=== PATIENT | female | born 1980 | race Caucasian/White ===

== ENCOUNTER 2018-10-31 13:53 | Emergency (ER) | payer MEDICAID, OTHER ==
[~2018-10-31] VITALS: Ht 165.1 cm; Wt 70.3 kg
[~2018-10-31 13:53] MED LIST: CLON0.12 PO; CLON1TAB2 PO; OXYC-12 PO; PRD20T PO; PRM25T PO; [UNRECOGNIZED DRUG - OTHER]
[2018-10-31 14:52] LABS: BASOPHILS % (AUTO) 0 % (0-10); EOSINOPHILS # (AUTO) 0.2 10^3/uL (0.0-0.3); EOSINOPHILS % (AUTO) 2 % (0-10); HEMATOCRIT 40 % (35-52); HEMOGLOBIN 13.5 G/DL (11.5-16.0); LYMPHOCYTES # (AUTO) 3.2 X 10^3 (1.0-4.0); LYMPHOCYTES % (AUTO) 28 % (12-44); MEAN CORPUSCULAR HEMOGLOBIN 32 PG (25-34); MEAN CORPUSCULAR HGB CONC 33 G/DL (32-36); MEAN CORPUSCULAR VOLUME 95 FL (80-99); MONOCYTES # (AUTO) 0.7 X 10^3 (0.0-1.0); MONOCYTES % (AUTO) 6 % (0-12); NEUTROPHILS # (AUTO) 7.5 X 10^3 (1.8-7.8); NEUTROPHILS % (AUTO) 64 % (42-75); PLATELET COUNT 437 10^3/uL (130-400); RED BLOOD COUNT 4.26 10^6/uL (4.35-5.85); RED CELL DISTRIBUTION WIDTH 12.6 % (10.0-14.5); WHITE BLOOD COUNT 11.7 10^3/uL (4.3-11.0)
--- NOTE | 2018-10-31 14:55 | ED Abdominal Pain ---
General Chief Complaint: Abdominal/GI Problems Stated Complaint: UPPER ABD PAIN Nursing Triage Note: FOR LAST WEEK, PATIENT HAS BEEN HAVING UPPER ABD PAIN BILATERALLY. SHE HAS ALSO BEEN HAVING DIARRHEA NAD NAUSEA AND HAS HAD GREEN COLORED VOMITUS. HAS HAD CHILLS. Sepsis Screen: No Definite Risk Source of Information: Patient Exam Limitations: No Limitations History of Present Illness Date Seen by Provider: Oct 31, 2018 Time Seen by Provider: 14:49 Initial Comments Patient is a 37-year-old female who presents with complaints of epigastric abdominal pain, nausea, vomiting, diarrhea for the past week. She didn't denies fevers but has had periods of feeling clammy and chills often. Denies any urinary tract symptoms. Timing/Duration: 1 Week Severity/Quality: Cramping Location: Epigastric Radiation: No Radiation Associated Symptoms: Fever/Chills, Nausea/Vomiting Allergies and Home Medications Allergies Coded Allergies: No Known Drug Allergies (Unverified , 05/05/12) Home Medications Nitrofurantoin Monohyd/M-Cryst 100 Mg Capsule, 1 TAB PO BID Prescribed by: LES TAYLOR on 10/31/18 1640 Ondansetron HCl 4 Mg Tab, 4 MG PO Q4H PRN for NAUSEA/VOMITING-1ST LINE Prescribed by: LES TAYLOR on 10/31/18 1640 Patient Home Medication List Home Medication List Reviewed: Yes Review of Systems Review of Systems Constitutional: see HPI, chills, fever Gastrointestinal: See HPI, Abdominal Pain, Diarrhea, Nausea, Vomiting All Other Systems Reviewed Negative Unless Noted: Yes Past Rbutkfs-Kofxdp-Mmzzng Hx Past Med/Social Hx: Reviewed Nursing Past Med/Soc Hx Patient Social History Alcohol Use: Denies Use Recreational Drug Use: No Smoking Status: Current Someday Smoker Type Used: Cigarettes 2nd Hand Smoke Exposure: Yes Recent Foreign Travel: No Contact w/Someone Who Travel: No Recent Infectious Disease Expo: No Recent Hopitalizations: No Seasonal Allergies Seasonal Allergies: No Past Medical History Surgeries: Yes Appendectomy, Section, Tonsillectomy, Tubal Ligation Respiratory: No Cardiac: No Neurological: No Genitourinary: No Gastrointestinal: No Musculoskeletal: No Endocrine: No HEENT: No Cancer: No Psychosocial: No Integumentary: No Blood Disorders: No Family Medical History Reviewed Nursing Family Hx Physical Exam Vital Signs Vital Signs - First Documented 10/31/18 14:06 Temp 97.9 Pulse 78 Resp 18 B/P (MAP) 143/82 (102) Pulse Ox 100 Capillary Refill : Less Than 3 Seconds Height/Weight/BMI Height: 5'5.00" Weight: 155lbs. 0oz. 70.990337eu; BMI Method:Stated General Appearance: WD/WN, no apparent distress Respiratory: chest non-tender, lungs clear, normal breath sounds, no respiratory distress, no accessory muscle use Cardiovascular: normal peripheral pulses, regular rate, rhythm, no edema, no gallop, no JVD, no murmur Gastrointestinal: normal bowel sounds, soft, no organomegaly, no pulsatile mass , tenderness (left lower quadrant tenderness.) Neurologic/Psychiatric: alert, normal mood/affect, oriented x 3 Skin: normal color, warm/dry Progress/Results/Core Measures Results/Orders Lab Results Laboratory Tests Test 10/31/18 14:46 10/31/18 14:53 Range/Units White Blood Count 11.7 H 4.3-11.0 10^3/uL Red Blood Count 4.26 L 4.35-5.85 10^6/uL Hemoglobin 13.5 11.5-16.0 G/DL Hematocrit 40 35-52 % Mean Corpuscular Volume 95 80-99 FL Mean Corpuscular Hemoglobin 32 25-34 PG Mean Corpuscular Hemoglobin Concent 33 32-36 G/DL Red Cell Distribution Width 12.6 10.0-14.5 % Platelet Count 437 H 130-400 10^3/uL Mean Platelet Volume 10.0 7.4-10.4 FL Neutrophils (%) (Auto) 64 42-75 % Lymphocytes (%) (Auto) 28 12-44 % Monocytes (%) (Auto) 6 0-12 % Eosinophils (%) (Auto) 2 0-10 % Basophils (%) (Auto) 0 0-10 % Neutrophils # (Auto) 7.5 1.8-7.8 X 10^3 Lymphocytes # (Auto) 3.2 1.0-4.0 X 10^3 Monocytes # (Auto) 0.7 0.0-1.0 X 10^3 Eosinophils # (Auto) 0.2 0.0-0.3 10^3/uL Basophils # (Auto) 0.0 0.0-0.1 10^3/uL Sodium Level 138 135-145 MMOL/L Potassium Level 4.0 3.6-5.0 MMOL/L Chloride Level 101 98-107 MMOL/L Carbon Dioxide Level 28 21-32 MMOL/L Anion Gap 9 5-14 MMOL/L Blood Urea Nitrogen 12 7-18 MG/DL Creatinine 0.90 0.60-1.30 MG/DL Estimat Glomerular Filtration Rate > 60 BUN/Creatinine Ratio 13 Glucose Level 109 H 70-105 MG/DL Calcium Level 9.5 8.5-10.1 MG/DL Corrected Calcium 9.2 8.5-10.1 MG/DL Total Bilirubin 0.4 0.1-1.0 MG/DL Aspartate Amino Transf (AST/SGOT) 15 5-34 U/L Alanine Aminotransferase (ALT/SGPT) 15 0-55 U/L Alkaline Phosphatase 72 40-136 U/L Total Protein 7.6 6.4-8.2 GM/DL Albumin 4.4 3.2-4.5 GM/DL Amylase Level 23 L 25-125 U/L Lipase 16 8-78 U/L Serum Test, Qualitative NEGATIVE NEGATIVE Urine Color YELLOW Urine Clarity SLIGHTLY CLOUDY Urine pH 5 5-9 Urine Specific [place] 1.025 H 1.016-1.022 Urine Protein 2+ H NEGATIVE Urine Glucose (UA) NEGATIVE NEGATIVE Urine Ketones 1+ H NEGATIVE Urine Nitrite POSITIVE H NEGATIVE Urine Bilirubin 1+ H NEGATIVE Urine Urobilinogen 1 NORMAL MG/DL Urine Leukocyte Esterase 2+ H NEGATIVE Urine RBC (Auto) 4+ H NEGATIVE Urine RBC 0-2 /HPF Urine WBC 5-10 H /HPF Urine Squamous Epithelial Cells 5-10 /HPF Urine Renal Epithelial Cells NONE /HPF Urine Crystals PRESENT H /LPF Urine Calcium Oxalate Crystals MODERATE H /LPF Urine Bacteria LARGE H /HPF Urine Casts NONE /LPF Urine Mucus MODERATE H /LPF Urine Culture Indicated YES My Orders Orders - LES TAYLOR Comprehensive Metabolic Panel (10/31/18 14:13) Lipase (10/31/18 14:13) Amylase (10/31/18 14:13) Ua Culture If Indicated (10/31/18 14:13) Hcg,Qualitative Serum (10/31/18 14:13) Saline Lock/Iv-Start (10/31/18 14:13) Cbc With Automated Diff (10/31/18 14:13) Ct Abdomen/Pelvis W (10/31/18 15:06) Urine Culture (10/31/18 14:53) Iohexol Injection (Omnipaque 350 Mg/Ml 1 (10/31/18 15:30) Contrast Received (Contrast Received) (10/31/18 15:30) Ns (Ivpb) (Sodium Chloride 0.9% Ivpb Bag (10/31/18 15:30) Medications Given in ED Current Medications Medications Dose Ordered Sig/Yolanda Route Start Time Stop Time Status Last Admin Dose Admin Iohexol 100 ml ONCE ONCE IV 10/31/18 15:30 10/31/18 15:33 DC 10/31/18 15:58 100 ML Sodium Chloride 100 ml ONCE ONCE IV 10/31/18 15:30 10/31/18 15:33 DC 10/31/18 15:58 80 ML Vital Signs/I&O 10/31/18 14:06 Temp 97.9 Pulse 78 Resp 18 B/P (MAP) 143/82 (102) Pulse Ox 100 Blood Pressure Mean: 102 Progress Progress Note : Time: 16:47 Progress Note I have seen and evaluated the patient. I've informed her of her laboratory and CT findings. She agrees with plans for discharge, plans for close follow-up, return precautions were given. Diagnostic Imaging Diagonstic Imaging: CT Plain Films/CT/US/NM/MRI: abdomen, pelvis Comments NAME: SIMONA JUNE [facility] REC#: [id number] PT STATUS: REG ER : 1980 PHYSICIAN: LES TAYLOR ADMIT DATE: 10/31/18/ER Draft Date of Exam:10/31/18 CT ABDOMEN/PELVIS W INDICATION: Abdominal pain, nausea, vomiting and diarrhea. TECHNIQUE: CT of the abdomen and pelvis obtained with IV contrast bolus. COMPARISON: There is no prior study for comparison. FINDINGS: The visualized portions of the lung bases are clear. There are no pleural fluid collections. There is no free intraperitoneal air. The liver shows a tiny probable cyst in the right lobe laterally measuring about 5 mm. The liver is otherwise unremarkable. Spleen, adrenals, and pancreas are normal in appearance. The kidneys bilaterally appear unremarkable. There is no retroperitoneal mass or adenopathy. There is no ascites. There is a large amount of retained fluid material in the stomach. Intestinal loops do not appear dilated or thickened. There appear to be surgical sutures in the base of the cecum which may be due to previous appendectomy. The appendix is not visualized. IMPRESSION: There is a large amount of retained fluid material in the stomach. Intestinal loops are unremarkable. There is no abscess or focal inflammatory process otherwise visualized. Patient appears to have had previous appendectomy, correlate clinically. Dictated on workstation # [id number] Dict: 10/31/18 1614 Trans: 10/31/18 1631 [facility] [id number] Interpreted by: PACHECO STERN MD Electronically signed by: Reviewed: Reviewed by Me Departure Impression Primary Impression: Nausea vomiting and diarrhea Additional Impression: Urinary tract infection Disposition: HOME, SELF-CARE Condition: Stable/Unchanged Departure-Patient Inst. Decision time for Depature: 16:37 Referrals: PRAVIN GRIMALDO MD (PCP) Primary Care Physician Patient Instructions: Urinary Tract Infection, Adult (DC), Viral Gastroenteritis, Adult (DC) Add. Discharge Instructions: Take medications as directed. Clear liquid diet and advance as tolerated. Drink plenty of clear liquids to stay hydrated. You may use uiyd-tps-wzdjrjw antidiarrheals such as Imodium as directed by the bottle. Tylenol and ibuprofen as directed by the bottle for pain relief. Follow-up with her primary care provider within 1 week for recheck. Return back to the emergency room for any worsening symptoms or concerns as needed. All discharge instructions reviewed with patient and/or family. Voiced understanding. Scripts Ondansetron HCl (Zofran) 4 Mg Tab 4 MG PO Q4H PRN for NAUSEA/VOMITING-1ST LINE, #14 TAB Prov: LES TAYLOR 10/31/18 Nitrofurantoin Monohyd/M-Cryst (Macrobid 100 mg Capsule) 100 Mg Capsule 1 TAB PO BID for 5 Days, #10 CAP Prov: LES TAYLOR 10/31/18 LES TAYLOR Oct 31, 2018 14:55
[2018-10-31 15:07] LABS: CLARITY,URINE SLIGHTLY CLOUDY; COLOR,URINE YELLOW; GLUCOSE, URINE (UA) NEGATIVE (NEGATIVE); KETONES,URINE 1+ (NEGATIVE); LEUKOCYTE ESTERASE ,URINE 2+ (NEGATIVE); PH,URINE 5 (5-9); PROTEIN,URINE 2+ (NEGATIVE); UROBILINOGEN,URINE 1 MG/DL (NORMAL)
[2018-10-31 15:16] LABS: ALANINE AMINOTRANSFERASE 15 U/L (0-55); ALBUMIN 4.4 GM/DL (3.2-4.5); ALKALINE PHOSPHATASE 72 U/L (40-136); AMYLASE 23 U/L (25-125); BILIRUBIN,TOTAL 0.4 MG/DL (0.1-1.0); BUN/CREATININE RATIO 13; CALCIUM 9.5 MG/DL (8.5-10.1); CARBON DIOXIDE 28 MMOL/L (21-32); CHLORIDE 101 MMOL/L (98-107); GFR ESTIMATED > 60; GLUCOSE 109 MG/DL (70-105); LIPASE 16 U/L (8-78); SODIUM 138 MMOL/L (135-145); TOTAL PROTEIN 7.6 GM/DL (6.4-8.2)
[2018-10-31 15:21] LABS: BACTERIA,URINE LARGE /HPF; CALCIUM OXALATE CRYSTALS,UR MODERATE /LPF; RBC,URINE 0-2 /HPF
[2018-10-31 15:22] LABS: BILIRUBIN,URINE 1+ (NEGATIVE); NITRITE,URINE POSITIVE (NEGATIVE)
[2018-10-31] MEDS ORDERED: NS 100 ML (IVPB) BAG IV ONE (15:30)
[2018-10-31] MEDS ORDERED: IOHEXOL 350 MG/ML 100 ML (OMNIPAQUE 350) VIAL IV ONE (15:30)
[2018-10-31] MEDS ORDERED: RECEIVED CONTRAST (Hold Metformin) IV SCH (15:30)
--- NOTE | 2018-10-31 16:31 | Diagnostic Imaging Report ---
INDICATION: Abdominal pain, nausea, vomiting and diarrhea. TECHNIQUE: CT of the abdomen and pelvis obtained with IV contrast bolus. COMPARISON: There is no prior study for comparison. FINDINGS: The visualized portions of the lung bases are clear. There are no pleural fluid collections. There is no free intraperitoneal air. The liver shows a tiny probable cyst in the right lobe laterally measuring about 5 mm. The liver is otherwise unremarkable. Spleen, adrenals, and pancreas are normal in appearance. The kidneys bilaterally appear unremarkable. There is no retroperitoneal mass or adenopathy. There is no ascites. There is a large amount of retained fluid material in the stomach. Intestinal loops do not appear dilated or thickened. There appear to be surgical sutures in the base of the cecum which may be due to previous appendectomy. The appendix is not visualized. IMPRESSION: There is a large amount of retained fluid material in the stomach. Intestinal loops are unremarkable. There is no abscess or focal inflammatory process otherwise visualized. Patient appears to have had previous appendectomy, correlate clinically. Dictated by: Dictated on workstation # [id number]
[2018-10-31] MEDS ORDERED: ONDN4T PO (16:40)
[2018-10-31] MEDS ORDERED: NITR-65 PO (16:40)
[2018-10-31 16:51] VITALS: BP 115/78
== END 2018-10-31 16:51 | disposition home or self-care (01) ==
LOC: EDUNIT# 13:53 → ER 13:54
DX: N39.0 Urinary tract infection, site not specified (principal); R11.2 Nausea with vomiting, unspecified; R19.7 Diarrhea, unspecified; F17.210 Nicotine dependence, cigarettes, uncomplicated; Z90.49 Acquired absence of other specified parts of digestive tract; Z90.89 Acquired absence of other organs; Z98.51 Tubal ligation status
CPT/HCPCS: 36415; 74177; 80053; 81000; 82150; 83690; 84703; 85025; 87077; 87088; 87186

== ENCOUNTER 2021-10-20 16:16 | Emergency (ER) | payer SELFPAY ==
[~2021-10-20] VITALS: Ht 165 cm; Wt 59.0 kg
[~2021-10-20 16:16] MED LIST changes: +NITR-65 PO; +ONDN4T PO
[2021-10-20] MEDS ORDERED: RX-MUPIROCIN (BACTROBAN) 2% OINT 22 GM TUBE TOP STA (17:12)
--- NOTE | 2021-10-20 17:15 | ED General ---
General Chief Complaint: General Problems/Pain Stated Complaint: L LEG PAIN Nursing Triage Note: AMB TO ROOM REPORTS THAT SHE WAS SEEN IN [facility] LAST NIGHT FOR AREA ON L LEG. SWOLLEN DARK AREA WITH REDNESS AROUND SITE NOTE. History of Present Illness Date Seen by Provider: Oct 20, 2021 Time Seen by Provider: 16:55 Initial Comments 40-year-old female with abscess to left lower leg, anterior. 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 She was seen in the emergency department at [facility] yesterday and started on Bactrim DS. She has noted minimal to no improvement in her symptoms. She is current on tetanus, she denies any spontaneous drainage from the wound. No other complaints. No history of MRSA. Timing/Duration: 3-4 Days Severity: Mild Associated Systoms: Denies Symptoms Allergies and Home Medications Allergies Coded Allergies: No Known Drug Allergies (Unverified , 05/05/12) Patient Home Medication List Home Medication List Reviewed: Yes Nitrofurantoin Monohyd/M-Cryst (Macrobid 100 mg Capsule) 100 Mg Capsule, 1 TAB PO BID Prescribed by: LES TAYLOR on 10/31/18 1640 Ondansetron HCl (Zofran) 4 Mg Tab, 4 MG PO Q4H PRN for NAUSEA/VOMITING-1ST LINE Prescribed by: LES TAYLOR on 10/31/18 1640 Review of Systems Review of Systems Constitutional: no symptoms reported, chills Skin: see HPI, other (Abscess left lower leg.) All Other Systems Reviewed Negative Unless Noted: Yes Past Vpcyobm-Pbibnf-Ykydxp Hx Patient Social History Substance use?: No Seasonal Allergies Seasonal Allergies: No Past Medical History Surgeries: Yes Appendectomy, Section, Tonsillectomy, Tubal Ligation Respiratory: No Cardiac: No Neurological: No Genitourinary: No Gastrointestinal: No Musculoskeletal: No Endocrine: No HEENT: No Cancer: No Psychosocial: No Integumentary: No Blood Disorders: No Family Medical History Reviewed Nursing Family Hx Physical Exam Vital Signs Vital Signs - First Documented 10/20/21 16:30 Temp 36.7 Pulse 99 Resp 18 B/P (MAP) 122/74 (90) Pulse Ox 99 O2 Delivery Room Air Capillary Refill : Less Than 3 Seconds Height, Weight, BMI Height: 5'5.00" Weight: 155lbs. 0oz. 70.004765ed; 21.00 BMI Method:Stated General Appearance: No Apparent Distress, WD/WN Neck: Full Range of Motion, Normal Inspection, Non Tender, Supple Respiratory: Chest Non Tender, Lungs Clear, Normal Breath Sounds Cardiovascular: Regular Rate, Rhythm, No Edema Gastrointestinal: Normal Bowel Sounds, Non Tender, Soft Extremity: Normal Capillary Refill, Normal Range of Motion, Non Tender, No Calf Tenderness Neurologic/Psychiatric: Alert, Oriented x3, No Motor/Sensory Deficits, Normal Mood/Affect Skin: Other (Marked erythema with induration to left lower leg, anteriorly. No fluctuance.) Progress/Results/Core Measures Suspected Sepsis SIRS Temperature: Pulse: 99 Respiratory Rate: 18 Blood Pressure 122 /74 Mean: 90 Results/Orders My Orders Orders - ULISES FREEMAN Rx-Mupirocin 2% Oint (Rx-Bactroban) (10/20/21 17:12) Wound Culture (10/20/21 17:19) Vital Signs/I&O 10/20/21 10/20/21 16:30 17:26 Temp 36.7 36.7 Pulse 99 99 Resp 18 18 B/P (MAP) 122/74 (90) 122/74 Pulse Ox 99 99 O2 Delivery Room Air Room Air Capillary Refill : Less Than 3 Seconds Blood Pressure Mean: 90 Progress Note : Time: 16:55 Progress Note Patient seen and evaluated, small amount of purulent drainage expressed from the wound. Culture obtained. Will start Bactroban ointment 3 times daily. Culture results will be called to the patient. Discharge instructions and return precautions reviewed. Departure Impression Primary Impression: Abscess of left lower leg Disposition: HOME, SELF-CARE Condition: Improved Departure-Patient Inst. Decision time for Depature: 17:15 Referrals: NO,LOCAL PHYSICIAN (PCP) Primary Care Physician BELLE LÓPEZ (Family) Primary Care Physician Patient Instructions: Abscess Drainage, Percutaneous (DC), MRSA (DC) Add. Discharge Instructions: Clean wound with peroxide and apply Bactroban ointment 3 times daily. Continue to take antibiotics as prescribed. You may continue to use the tramadol for pain, for additional relief you may alternate between Tylenol 650 mg and ibuprofen 600 mg every 4 hours. Schedule an appointment for Monday with your primary care provider. You may call back in 48 hours for results from your culture. Return to the emergency department for new, urgent healthcare needs. All discharge instructions reviewed with patient and/or family. Voiced understanding. ULISES FREEMAN Oct 20, 2021 17:15
[2021-10-20 17:26] VITALS: BP 122/74
== END 2021-10-20 17:25 | disposition home or self-care (01) ==
LOC: EDUNIT# 16:16 → ER 16:18
DX: L02.416 Cutaneous abscess of left lower limb (principal)
CPT/HCPCS: 87070; 87077; 87186; 87205

== ENCOUNTER 2022-02-03 13:24 | Emergency (ER) | payer SELFPAY ==
--- NOTE | 2022-02-03 14:01 | ED Abdominal Pain ---
General Chief Complaint: Abdominal/GI Problems Stated Complaint: ABD PAIN - COUGH - FEVER - CONGESTION Nursing Triage Note: PT AMB TO RM 10 WITH C/O 10/10 RUQ PAIN THAT STARTED 2 WEEKS AGO BUT WORSE TODAY. PT HAS HAD NAUSEA SOME DAYS BUT NOT CONSTANT. SHE STATES TODAY THE PAIN IS CONSTANT AND STABBING Source of Information: Patient Exam Limitations: No Limitations (PRAVEEN CROUCH MED STUDENT) History of Present Illness Date Seen by Provider: Feb 03, 2022 Time Seen by Provider: 13:45 Initial Comments Mrs. Abdi is a 41yo woman who presents to ED today due to abdominal pain and nausea. She states that his has been going on for about 2 weeks, started sometime when she was just at work. Pain is in the RUQ, rates about a 10, sharp pain that comes in waves. It also radiates into her back. She has not had pain like this before. This pain started much milder 2 weeks ago and has continued to get worse. She also complains of nausea with no vomiting, being gassy, fever of 103 last night. Denies urinary symptoms, gynecological symptoms. LBM was last night and said it was loose. States she has her tubes tied and is on her period. Has tried Ibuprofen for the pain which didnt help. Doesnt notice pain is worse with eating or certain foods but pain can be worse with movement. She has had an appendectomy. She still has her galbladder. She is a smoker, 3 cigarettes/week. Socially drinks, does not use drugs. NKDA. (PRAVEEN CROUCH MED STUDENT) Allergies and Home Medications Allergies Coded Allergies: No Known Drug Allergies (Unverified , 05/05/12) Patient Home Medication List Home Medication List Reviewed: Yes (GABRIEL PEREIRA MD) Cefdinir (Cefdinir) 300 Mg Capsule, 300 MG PO BID Prescribed by: GABRIEL ADAMS on 02/03/221711 Nitrofurantoin Monohyd/M-Cryst (Macrobid 100 mg Capsule) 100 Mg Capsule, 1 TAB PO BID Prescribed by: LES TAYLOR on 10/31/18 1640 Ondansetron (Ondansetron Odt) 4 Mg Tab.rapdis, 4 MG SL Q4H PRN for NAUSEA/VOMITING Prescribed by: GABRIEL ADAMS on 02/03/221711 Ondansetron HCl (Zofran) 4 Mg Tab, 4 MG PO Q4H PRN for NAUSEA/VOMITING-1ST LINE Prescribed by: LES TAYLOR on 10/31/181639 Tramadol HCl (Ultram) 50 Mg Tablet, 50 MG PO Q6H PRN for PAIN-BREAKTHROUGH Prescribed by: GABRIEL ADAMS on 02/03/221712 Review of Systems Review of Systems Constitutional: chills, fever (last night 103) EENTM: No Blurred Vision, No Double Vision Respiratory: Denies Cough, Denies Shortness of Air, Denies Wheezing Cardiovascular: Denies Chest Pain, Denies Edema, Denies Palpitations Gastrointestinal: Abdominal Pain (RUQ); Denies Constipated, Denies Diarrhea; Nausea; Denies Rectal Bleeding, Denies Vomiting Genitourinary: Denies Burning, Denies Discharge, Denies Frequency, Denies Hematuria; Other (gassy) Musculoskeletal: No joint pain, No joint swelling Skin: No lesions, No rash Psychiatric/Neurological: Denies Headache, Denies Numbness (PRAVEEN CROUCH STUDENT) Past Thtbagu-Fltrks-Avxgna Hx Patient Social History Tobacco Use?: Yes Tobacco type used: Cigarettes Smoking Status: Light Tobacco Smoker Use of E-Cig and/or Vaping dev: No Substance use?: No Alcohol Use?: No Pt feels they are or have been: No (PRAVEEN CROUCH STUDENT) Seasonal Allergies Seasonal Allergies: No (PRAVEEN CROUCH) Past Medical History Surgery/Hospitalization HX: ANEMIA Surgeries: Yes Appendectomy, Section, Tonsillectomy, Tubal Ligation Respiratory: No Cardiac: No Neurological: No Last Menstrual Period: Feb 03, 2022 Genitourinary: No Gastrointestinal: No Musculoskeletal: No Endocrine: No HEENT: No Cancer: No Psychosocial: No Integumentary: No Blood Disorders: No (PRAVEEN CROUCH STUDENT) Physical Exam Vital Signs Vital Signs - First Documented 02/03/22 13:33 Temp 36.6 Pulse 87 Resp 18 B/P (MAP) 136/83 (100) (GABRIEL PEREIRA MD) Vital Signs Capillary Refill : (PRAVEEN CROUCH STUDENT) Height/Weight/BMI Height: 5'5.00" Weight: 155lbs. 0oz. 70.236737ch; 21.00 BMI Method:Stated General Appearance: WD/WN, moderate distress HEENT: PERRL/EOMI, pharynx normal Respiratory: chest non-tender, lungs clear, normal breath sounds Cardiovascular: normal peripheral pulses, regular rate, rhythm, no edema, no murmur Peripheral Pulses: 2+ Radial Pulses (R), 2+ Radial Pulses (L) Gastrointestinal: normal bowel sounds, soft; No distended; tenderness (RUQ); No hernia; other (positive murphhys sign) Extremities: non-tender, no pedal edema, no calf tenderness Neurologic/Psychiatric: alert, normal mood/affect, oriented x 3 Skin: normal color, warm/dry (PRAVEEN CROUCH MED STUDENT) Progress/Results/Core Measures Results/Orders Lab Results Laboratory Tests Test 02/03/22 13:42 02/03/22 14:11 Range/Units White Blood Count 11.0 4.3-11.0 10^3/uL Red Blood Count 4.23 3.80-5.11 10^6/uL Hemoglobin 13.6 11.5-16.0 g/dL Hematocrit 40 35-52 % Mean Corpuscular Volume 94 80-99 fL Mean Corpuscular Hemoglobin 32 25-34 pg Mean Corpuscular Hemoglobin Concent 34 32-36 g/dL Red Cell Distribution Width 12.8 10.0-14.5 % Platelet Count 434 H 130-400 10^3/uL Mean Platelet Volume 10.0 9.0-12.2 fL Immature Granulocyte % (Auto) 1 % Neutrophils (%) (Auto) 64 42-75 % Lymphocytes (%) (Auto) 28 12-44 % Monocytes (%) (Auto) 6 0-12 % Eosinophils (%) (Auto) 2 0-10 % Basophils (%) (Auto) 1 0-10 % Neutrophils # (Auto) 7.0 1.8-7.8 10^3/uL Lymphocytes # (Auto) 3.1 1.0-4.0 10^3/uL Monocytes # (Auto) 0.6 0.0-1.0 10^3/uL Eosinophils # (Auto) 0.2 0.0-0.3 10^3/uL Basophils # (Auto) 0.1 0.0-0.1 10^3/uL Immature Granulocyte # (Auto) 0.1 0.0-0.1 10^3/uL Sodium Level 136 135-145 MMOL/L Potassium Level 3.6 3.6-5.0 MMOL/L Chloride Level 102 98-107 MMOL/L Carbon Dioxide Level 22 21-32 MMOL/L Anion Gap 12 5-14 MMOL/L Blood Urea Nitrogen 9 7-18 MG/DL Creatinine 0.80 0.60-1.30 MG/DL Estimat Glomerular Filtration Rate 95 BUN/Creatinine Ratio 11 Glucose Level 95 70-105 MG/DL Calcium Level 9.6 8.5-10.1 MG/DL Corrected Calcium 9.3 8.5-10.1 MG/DL Total Bilirubin 0.6 0.1-1.0 MG/DL Aspartate Amino Transf (AST/SGOT) 16 5-34 U/L Alanine Aminotransferase (ALT/SGPT) 12 0-55 U/L Alkaline Phosphatase 54 40-136 U/L Total Protein 7.8 6.4-8.2 GM/DL Albumin 4.4 3.2-4.5 GM/DL Lipase 14 8-78 U/L Serum Test, Qualitative NEGATIVE NEGATIVE Urine Color YELLOW Urine Clarity CLOUDY Urine pH 6.0 5-9 Urine Specific [place] 1.015 L 1.016-1.022 Urine Protein NEGATIVE NEGATIVE Urine Glucose (UA) NEGATIVE NEGATIVE Urine Ketones NEGATIVE NEGATIVE Urine Nitrite POSITIVE H NEGATIVE Urine Bilirubin NEGATIVE NEGATIVE Urine Urobilinogen 0.2 < = 1.0 MG/DL Urine Leukocyte Esterase 3+ H NEGATIVE Urine RBC (Auto) NEGATIVE NEGATIVE Urine RBC NONE /HPF Urine WBC 5-10 H /HPF Urine Squamous Epithelial Cells 5-10 /HPF Urine Crystals NONE /LPF Urine Bacteria LARGE H /HPF Urine Casts NONE /LPF Urine Mucus NEGATIVE /LPF Urine Culture Indicated YES (GABRIEL PEREIRA MD) Micro Results Microbiology 02/03/22 Urine Culture - Preliminary, Resulted Gram Negative Bacillus 1 (GABRIEL PEREIRA MD) My Orders Orders - GABRIEL PEREIRA MD Us Gallbladder [id number] (02/03/22 13:51) Cbc With Automated Diff (02/03/22 13:51) Comprehensive Metabolic Panel (02/03/22 13:51) Hcg,Qualitative Serum (02/03/22 13:51) Lipase (02/03/22 13:51) Ed Iv/Invasive Line Start (02/03/22 13:51) Lactated Ringers (Lr 1000 Ml Iv Solution (02/03/22 14:00) Ondansetron Injection (Zofran Injectio (02/03/22 14:00) Fentanyl Inj (Sublimaze Injection) (02/03/22 14:15) Chest Pa/Lat (2 View) (02/03/22 15:02) Ct Abd/Pelvis Wo(Kidney Stone) (02/03/22 15:31) Ketorolac Injection (Toradol Injection) (02/03/22 16:30) Ceftriaxone 1 Gm Pre-Mix (Rocephin 1 Gm (02/03/22 16:21) (GABRIEL PEREIRA MD) Medications Given in ED (GABRIEL PEREIRA MD) Vital Signs/I&O 02/03/22 02/03/22 13:33 17:22 Temp 36.6 36.6 Pulse 87 80 Resp 18 17 B/P (MAP) 136/83 (100) 116/73 02/04/22 00:00 Intake Total 50 ml Balance 50 ml (GABRIEL PEREIRA MD) Blood Pressure Mean: 100 Progress Progress Note : Progress Note Patient reported fever at home of up to 103.2, but she did not demonstrate any fever in the ER. She had taken ibuprofen earlier in the day. Patient was initially treated with Zofran and fentanyl. She was hydrated with a liter of LR. Symptoms seemed most consistent with gallbladder disease. Gallbladder ultrasound was unremarkable. Since she recently had a cough, gallbladder ultrasound was followed by 2 view chest x-ray to rule out a lower lobe pneumonia. No pneumonia was identified. Urinary tract infection was identified on urinalysis. There was concern that there may be pyelonephritis and/or ureteral stone accompanying the urinary tract infection. We discussed risks and benefits of CT scan. Patient elected to proceed with CT scan. CT revealed no specific abnormalities. I did discuss the CT scan and ultrasound with the radiologist. At the conclusion of work-up, she was treated with Rocephin for the UTI. Lab work-up was relatively unremarkable and patient did not appear septic. I recommended further evaluation with hepatobiliary scan and possible endoscopy if pain persisted beyond the treatment of urinary tract infection. See discharge instructions for further discussion. (GABRIEL PEREIRA MD) Diagnostic Imaging Diagonstic Imaging: CT Plain Films/CT/US/NM/MRI: abdomen, pelvis Comments CT abdomen and pelvis viewed by me and report reviewed. See report below: NAME: SIMONA ABDI [facility] REC#: [id number] PT STATUS: REG ER : 1980 PHYSICIAN: GABRIEL PEREIRA MD ADMIT DATE: 02/03/22/ER Draft Date of Exam:02/03/22 CT ABD/PELVIS WO(KIDNEY STONE) PROCEDURE: CT urinary tract, rule out kidney stone. TECHNIQUE: Multiple contiguous axial images were obtained through the abdomen and pelvis without the use of intravenous contrast. Auto Exposure Controls were utilized during the CT exam to meet ALARA standards for radiation dose reduction. INDICATION: Left flank pain, no history of stones. COMPARISON: Exam is compared with the abdomen and pelvic CT 10/31/2018. FINDINGS: There are no radiopaque urinary tract calculi. There is no hydroureteronephrosis. There is no perinephric or periureteric edema or stranding. The unopacified urinary bladder is unremarkable. The uterus and adnexa are unremarkable. Tubal ligation clips are bilaterally noted. The appendix is absent. No diverticulitis. Liver, gallbladder, bile ducts, spleen, adrenals, and pancreas are unremarkable. The aorta is nonaneurysmal. There is no small or large bowel obstruction. No pneumatosis. No free air. No ascites, abscess, hematoma, or acute fluid collection. No focal inflammatory process. No aneurysm, adenopathy, or mass. The lung bases and the bony structures are nonacute. IMPRESSION: 1. Nonfocal, nonacute, unobstructed urinary tracts. No inflammatory process, obstructive features, or acute abnormalities. 2. In particular, no findings to explain the presenting complaint of left flank pain. Dictated on workstation # [id number] Dict: 02/03/22 1547 Trans: 02/03/22 1555 [id number] Interpreted by: LUZ MARINA BOURNE Diagonstic Imaging: Xray Plain Films/CT/US/NM/MRI: chest Comments 2 view chest x-ray viewed by me and report reviewed. See report below: NAME: SIMONA ABDI [facility] REC#: [id number] PT STATUS: REG ER : 1980 PHYSICIAN: GABRIEL PEREIRA MD ADMIT DATE: 02/03/22/ER Draft Date of Exam:02/03/22 CHEST PA/LAT (2 VIEW) INDICATION: Abdominal pain and nausea. PA and lateral views of the chest are obtained. COMPARISON: 06/24/2011. FINDINGS: Heart size and pulmonary vascularity are within normal limits, and the lungs are clear, bilaterally. Prominent epicardial fat pad is seen on the right. IMPRESSION: Unremarkable chest. Dictated on workstation # [id number] Dict: 02/03/22 1515 Trans: 02/03/22 1520 [id number] Interpreted by: LUZ MARINA BECERRIL MD Diagonstic Imaging: Ultrasound Plain Films/CT/US/NM/MRI: abdomen Comments Gallbladder ultrasound discussed with the shop service technician and report reviewed. See report below: NAME: SIMONA ABDI [facility] REC#: [id number] PT STATUS: REG ER : 1980 PHYSICIAN: GABRIEL PEREIRA MD ADMIT DATE: 02/03/22/ER Signed Date of Exam:02/03/22 US GALLBLADDER [id number] PROCEDURE: US Gallbladder. TECHNIQUE: Multiple real-time grayscale images were obtained over the right upper quadrant in various projections. INDICATION: Right upper quadrant abdominal pain and nausea. FINDINGS: Liver measures 15 cm in length without evidence of focal hepatic lesion identified. Gallbladder has a normal appearance without evidence of filling defect or wall thickening. There is no evidence of biliary ductal dilatation. No pancreatic, abdominal aortic or inferior vena caval abnormality is documented. No ascites was noted. There is increased echogenicity within the central right kidney. This could be related to lipomatosis or possible benign tubular ectasia. IMPRESSION: No evidence of acute cholecystitis or biliary tract obstruction. Medullary sponge kidney versus sinus lipomatosis cannot be excluded. Dictated by: Dictated on workstation # [id number] Dict: 02/03/22 1508 Trans: 02/03/22 1611 [id number] Interpreted by: LUZ MARINA BECERRIL MD Electronically signed by: LUZ MARINA BECERRIL MD 02/03/22 4318 (GABRIEL PEREIRA MD) Departure Impression Primary Impression: Urinary tract infection Qualified Codes: N39.0 - Urinary tract infection, site not specified Additional Impressions: Right upper quadrant pain Nausea Disposition: 01 HOME, SELF-CARE Condition: Improved Departure-Patient Inst. Decision time for Depature: 17:06 (GABRIEL PEREIRA MD) Referrals: NO,LOCAL PHYSICIAN (PCP) Primary Care Physician BELLE LÓPEZ (Family) Primary Care Physician Patient Instructions: Abdominal Pain, Adult ED, Urinary Tract Infection, Adult ED Add. Discharge Instructions: Please bring these discharge instructions with you to your follow-up appointment. Please contact your primary care provider to schedule follow-up appointment within the next week or so. Below are some instructions and items to prompt discussion with your primary care provider. 1. Right upper abdominal pain - The exact cause of this pain is uncertain at this time. It may be related to gallbladder dysfunction called biliary dyskinesia. This can be evaluated further with a hepatobiliary scan (HIDA scan). This can be ordered by your primary care provider. If gallbladder dysfunction is the cause of your pain, eating a low-fat, low oil diet may be helpful in reducing episodes of pain. Adhere to a noncarbonated clear liquid diet for the remainder of today. Then gradually advance her diet tomorrow if you are feeling improved. It is also possible that your right upper abdominal pain could be caused by urinary tract infection that is ascending toward your kidney. If that is the case, treating the urinary tract infection should drastically improve the pain and eventually resolve the pain completely. 2. Urinary tract infection - Please complete your antibiotic as prescribed. Follow-up with your primary care provider early next week regarding urine culture results. This will help ensure you are taking the right antibiotic for this infection. Drink plenty of clear liquids to stay well-hydrated and help flush out the infection. 3. Nausea and vomiting - This may be related to items #1 and 2. You may take Zofran (ondansetron) as prescribed to help control nausea and vomiting. 4. Pain control - Try to control your pain with [id number] Tylenol (acetaminophen) up to 1000 mg every 6 hours as needed and/or ibuprofen up to 600 mg every 6 hours as needed. If this does not effectively control your pain, you may add Ultram as prescribed. Please use Ultram with caution as it may cause drowsiness. It may also cause constipation, so you may wish to take a stool softener with it. 5. Return to the ER if you have worsening symptoms despite following these instructions. Call with any questions or concerns. All discharge instructions reviewed with patient and/or family. Voiced understanding. Scripts Tramadol HCl (Ultram) 50 Mg Tablet 50 MG PO Q6H PRN for PAIN-BREAKTHROUGH, #10 TAB Prov: GABRIEL PEREIRA MD 02/03/22 Ondansetron (Ondansetron Odt) 4 Mg Tab.rapdis 4 MG SL Q4H PRN for NAUSEA/VOMITING, #10 TAB Prov: GBARIEL PEREIRA MD 02/03/22 Cefdinir (Cefdinir) 300 Mg Capsule 300 MG PO BID, #14 CAP 0 Refills Prov: GABRIEL PEREIRA MD 02/03/22 Medical Student Attestation and Attending Note: I have personally interviewed and examined this patient along with Praveen Crouch, MS 4. I have reviewed student documentation including history, physical, and assessments. I agree with the documentation except where otherwise noted. Exam: General: Alert, oriented, no acute distress, well developed HEENT: Normocephalic and atraumatic Heart: Regular rate and rhythm without murmur Lungs: Clear to auscultation bilaterally with normal effort Abdomen: Soft, tender in the right upper quadrant, nondistended, normal bowel sounds Back: Right CVA tenderness Neuropsych: Alert, oriented, no focal deficits Skin: Warm and dry without rashes (GABRIEL PEREIRA MD) PRAVEEN CROUCH MED STUDENT Feb 03, 2022 14:00 GABRIEL PEREIRA MD Feb 03, 2022 16:14
[2022-02-03 14:02] LABS: BASOPHILS # (AUTO) 0.1 10^3/uL (0.0-0.1); BASOPHILS % (AUTO) 1 % (0-10); EOSINOPHILS # (AUTO) 0.2 10^3/uL (0.0-0.3); EOSINOPHILS % (AUTO) 2 % (0-10); HEMATOCRIT 40 % (35-52); HEMOGLOBIN 13.6 g/dL (11.5-16.0); LYMPHOCYTES # (AUTO) 3.1 10^3/uL (1.0-4.0); LYMPHOCYTES % (AUTO) 28 % (12-44); MEAN CORPUSCULAR HEMOGLOBIN 32 pg (25-34); MEAN CORPUSCULAR HGB CONC 34 g/dL (32-36); MEAN CORPUSCULAR VOLUME 94 fL (80-99); MONOCYTES # (AUTO) 0.6 10^3/uL (0.0-1.0); MONOCYTES % (AUTO) 6 % (0-12); NEUTROPHILS % (AUTO) 64 % (42-75); PLATELET COUNT 434 10^3/uL (130-400)
[2022-02-03 14:04] LABS: ALBUMIN 4.4 GM/DL (3.2-4.5)
[2022-02-03] MEDS: ONDANSETRON 4 MG/2 ML (SDV) Z0FRAN IVP ONE (14:04)
[2022-02-03] MEDS: LACTATED RINGERS 1,000 ML IV ONE (14:04)
[2022-02-03 14:05] LABS: POTASSIUM 3.6 MMOL/L (3.6-5.0)
[2022-02-03 14:06] LABS: CALCIUM 9.6 MG/DL (8.5-10.1)
[2022-02-03] MEDS: fentaNYL INJ 100 MCG/2 ML AMP IVP ONE (14:06)
[2022-02-03 14:07] LABS: TOTAL PROTEIN 7.8 GM/DL (6.4-8.2)
[2022-02-03 14:09] LABS: BILIRUBIN,TOTAL 0.6 MG/DL (0.1-1.0)
[2022-02-03 14:11] LABS: CREATININE SERUM 0.8 MG/DL (0.60-1.30)
[2022-02-03 14:23] LABS: BILIRUBIN,URINE NEGATIVE (NEGATIVE); CLARITY,URINE CLOUDY; COLOR,URINE YELLOW; GLUCOSE, URINE (UA) NEGATIVE (NEGATIVE); KETONES,URINE NEGATIVE (NEGATIVE); LEUKOCYTE ESTERASE ,URINE 3+ (NEGATIVE); NITRITE,URINE POSITIVE (NEGATIVE); PROTEIN,URINE NEGATIVE (NEGATIVE)
[2022-02-03 14:52] LABS: BACTERIA,URINE LARGE /HPF
--- NOTE | 2022-02-03 15:18 | Diagnostic Imaging Report ---
PROCEDURE: US Gallbladder. TECHNIQUE: Multiple real-time grayscale images were obtained over the right upper quadrant in various projections. INDICATION: Right upper quadrant abdominal pain and nausea. FINDINGS: Liver measures 15 cm in length without evidence of focal hepatic lesion identified. Gallbladder has a normal appearance without evidence of filling defect or wall thickening. There is no evidence of biliary ductal dilatation. No pancreatic, abdominal aortic or inferior vena caval abnormality is documented. No ascites was noted. There is increased echogenicity within the central right kidney. This could be related to lipomatosis or possible benign tubular ectasia. IMPRESSION: No evidence of acute cholecystitis or biliary tract obstruction. Medullary sponge kidney versus sinus lipomatosis cannot be excluded. Dictated by: Dictated on workstation # [id number]
--- NOTE | 2022-02-03 15:20 | Diagnostic Imaging Report ---
INDICATION: Abdominal pain and nausea. PA and lateral views of the chest are obtained. COMPARISON: 06/24/2011. FINDINGS: Heart size and pulmonary vascularity are within normal limits, and the lungs are clear, bilaterally. Prominent epicardial fat pad is seen on the right. IMPRESSION: Unremarkable chest. Dictated by: Dictated on workstation # [id number]
--- NOTE | 2022-02-03 15:55 | Diagnostic Imaging Report ---
PROCEDURE: CT urinary tract, rule out kidney stone. TECHNIQUE: Multiple contiguous axial images were obtained through the abdomen and pelvis without the use of intravenous contrast. Auto Exposure Controls were utilized during the CT exam to meet ALARA standards for radiation dose reduction. INDICATION: Left flank pain, no history of stones. COMPARISON: Exam is compared with the abdomen and pelvic CT 10/31/2018. FINDINGS: There are no radiopaque urinary tract calculi. There is no hydroureteronephrosis. There is no perinephric or periureteric edema or stranding. The unopacified urinary bladder is unremarkable. The uterus and adnexa are unremarkable. Tubal ligation clips are bilaterally noted. The appendix is absent. No diverticulitis. Liver, gallbladder, bile ducts, spleen, adrenals, and pancreas are unremarkable. The aorta is nonaneurysmal. There is no small or large bowel obstruction. No pneumatosis. No free air. No ascites, abscess, hematoma, or acute fluid collection. No focal inflammatory process. No aneurysm, adenopathy, or mass. The lung bases and the bony structures are nonacute. IMPRESSION: 1. Nonfocal, nonacute, unobstructed urinary tracts. No inflammatory process, obstructive features, or acute abnormalities. 2. In particular, no findings to explain the presenting complaint of left flank pain. Dictated by: Dictated on workstation # [id number]
[2022-02-03] MEDS: cefTRIAXone 1 GM PRE-MIX 50 ML IV STA (16:41)
[2022-02-03] MEDS: KETOROLAC 30 MG/ML VIAL IVP ONE (16:41)
[2022-02-03] MEDS ORDERED: ONDA4TAB11 SL (17:12)
[2022-02-03] MEDS ORDERED: CEFD300C3 PO (17:12)
[2022-02-03] MEDS ORDERED: TRAM-42 PO (17:12)
[2022-02-03 17:22] VITALS: BP 116/73
== END 2022-02-03 17:17 | disposition home or self-care (01) ==
LOC: EDUNIT# 13:24 → ER 13:26
DX: N39.0 Urinary tract infection, site not specified (principal); R10.11 Right upper quadrant pain; R11.0 Nausea; F17.210 Nicotine dependence, cigarettes, uncomplicated; Z90.89 Acquired absence of other organs
CPT/HCPCS: 36415; 71046; 74176; 76705; 80053; 81000; 83690; 84703; 85025; 87077; 87088; 87186

== ENCOUNTER 2023-03-02 15:41 | Emergency (ER) | payer BC ==
[~2023-03-02] VITALS: Ht 167.7 cm; Wt 68.0 kg
[~2023-03-02 15:41] MED LIST changes: +CEFD300C3 PO; +ONDA4TAB11 SL; +TRAM-42 PO
--- NOTE | 2023-03-02 17:31 | ED Integumentary General ---
General Chief Complaint: Skin/Wound Problems Stated Complaint: POSS ABSCESS RIGHT CHIN/NECK Nursing Triage Note: PT AMBULATE TO TRIAGE WITHOUT DIFFICULTY WITH C/O ABSCESS TO RIGHT LOWER FACE. PT REPORTS SHE WAS CLEANING HER GARAGE MONDAY AND WOKE MONDAY WITH A RAISED, RED AREA THAT HAS CONTINUED TO GROW. Source: patient Exam Limitations: no limitations History of Present Illness Date Seen by Provider: Mar 02, 2023 Time Seen by Provider: 17:22 Initial Comments 42-year-old female presents to the ED with complaints of abscess to the right side of her jaw. She reports this started as a pimple on Monday, and has progressed in size. She reports some throat pain last night, denies any throat pain currently. States she felt like she was having draining down her throat last night. Reports feeling feverish on and off. Denies chest pain, shortness of air, abdominal pain, nausea, vomiting. Denies any drainage from the abscess site. Denies any past medical history, does not take any medications regularly. Allergies and Home Medications Allergies Coded Allergies: No Known Drug Allergies (Unverified , 05/05/12) Patient Home Medication List Home Medication List Reviewed: Yes Cefdinir (Cefdinir) 300 Mg Capsule, 300 MG PO BID Prescribed by: GABRIEL ADAMS on 02/03/221711 Nitrofurantoin Monohyd/M-Cryst (Macrobid 100 mg Capsule) 100 Mg Capsule, 1 TAB PO BID Prescribed by: LES TAYLOR on 10/31/181639 Ondansetron (Ondansetron Odt) 4 Mg Tab.rapdis, 4 MG SL Q4H PRN for NAUSEA/VOMITING Prescribed by: GABRIEL ADAMS on 02/03/221711 Ondansetron HCl (Zofran) 4 Mg Tab, 4 MG PO Q4H PRN for NAUSEA/VOMITING-1ST LINE Prescribed by: LES TAYLOR on 10/31/18 1640 Tramadol HCl (Ultram) 50 Mg Tablet, 50 MG PO Q6H PRN for PAIN-BREAKTHROUGH Prescribed by: GABRIEL ADAMS on 02/03/221712 Review of Systems Review of Systems Constitutional: see HPI Past Wochljz-Tmhdww-Wzkypf Hx Patient Social History Tobacco Use?: Yes Tobacco type used: Cigarettes Smoking Status: Current Everyday Smoker Smokeless Tobacco Frequency: Never a User Use of E-Cig and/or Vaping dev: No Use of E-Cig and/or Vaping Chau: Never a User Substance use?: No Alcohol Use?: Yes Alcohol Frequency: Once in a while Pt feels they are or have been: No Seasonal Allergies Seasonal Allergies: No Past Medical History Surgery/Hospitalization HX: ANEMIA Surgeries: Yes Appendectomy, Section, Tonsillectomy, Tubal Ligation Respiratory: No Cardiac: No Neurological: No Genitourinary: No Gastrointestinal: No Musculoskeletal: No Endocrine: No HEENT: No Cancer: No Psychosocial: No Integumentary: No Blood Disorders: No Physical Exam Vital Signs Vital Signs - First Documented 03/02/23 16:30 Temp 36.5 Pulse 88 Resp 17 B/P (MAP) 132/82 (99) O2 Delivery Room Air Capillary Refill : Less Than 3 Seconds General Appearance: WD/WN, no apparent distress HEENT: other (No dental tenderness, no dental abscess noted) Neck: supple, normal inspection Cardiovascular: regular rate, rhythm Respiratory: lungs clear, normal breath sounds, no respiratory distress, no accessory muscle use Extremities: normal range of motion, normal inspection Neurologic/Psychiatric: alert, normal mood/affect Skin: normal color, warm/dry Skin Problem Location: face (right jaw) Skin Problem Character: abscess (quarter size area of induration, erythema, and elevation, no area of fluctuation palpated, was able to identify pocket of fluid with ultrasound) Procedures/Interventions I&D : Site: right jaw Blade Size: 11 I & D Procedure: betadine prep Progress Area anesthetized with 1% lidocaine without epinephrine. Area was incised with 11 blade. Incision was linear. Wound treatment included expression of purulent material. No packing or drain was placed. Progress/Results/Core Measures Results/Orders My Orders Orders - GLEN BEE APRN Lidocaine 1% Inj 10 Ml (Xylocaine 1% Inj (03/02/23 17:45) Lidocaine 1% Inj 20 Ml (Xylocaine 1% Inj (03/02/23 17:42) Vital Signs/I&O 03/02/23 03/02/23 16:30 18:26 Temp 36.5 36.5 Pulse 88 88 Resp 17 17 B/P (MAP) 132/82 (99) 132/82 O2 Delivery Room Air Room Air Blood Pressure Mean: 99 Progress Progress Note : Time: 16:49 Progress Note Patient seen and evaluated, resting comfortably in bed, no acute distress. I was able to identify pocket of fluid with ultrasound, I&D performed of abscess, see procedures. No surrounding cellulitis, patient does not need antibiotics since abscess was drained. Discharge instructions and return precautions provided. Departure Impression Primary Impression: Abscess Disposition: 01 HOME, SELF-CARE Condition: Stable Departure-Patient Inst. Decision time for Depature: 18:19 Referrals: BELLE LÓPEZ (PCP/Family) Primary Care Physician Patient Instructions: Abscess Incision and Drainage (DC) Add. Discharge Instructions: Keep the area open. When you shower let water run into it. Periodically squeeze it to drain any more pus. Follow-up with your primary care provider. Call them tomorrow to schedule an appointment this week or early next week. All discharge instructions reviewed with patient and/or family. Voiced understanding. GLEN BEE APRN Mar 02, 2023 17:31
[2023-03-02] MEDS ORDERED: LIDOCAINE 1% INJ 20 ML VIAL ONE (17:42)
[2023-03-02] MEDS ORDERED: LIDOCAINE 1% INJ 10 ML VIAL INJ ONE (17:45)
[2023-03-02 18:26] VITALS: BP 132/82
== END 2023-03-02 18:26 | disposition home or self-care (01) ==
LOC: EDUNIT# 15:41 → ER 15:43
DX: M27.2 Inflammatory conditions of jaws (principal); F17.210 Nicotine dependence, cigarettes, uncomplicated; Z28.310 Unvaccinated for COVID-19
CPT/HCPCS: 10060